=== PATIENT | female | born 1990 | race Hispanic/Latino ===

== ENCOUNTER 2024-01-23 19:49 | Emergency (ER) | payer SELFPAY ==
[2024-01-23 19:54] VITALS: BP 109/65; PULSE 71; RESP 16; TEMP 36.6; O2SAT 99
--- NOTE | 2024-01-23 20:10 | ED.GENADULT ---
HPI - General Adult General Chief complaint: Headache Stated complaint: headache Time Seen by Provider: 01/23/24 20:02 History of Present Illness HPI narrative: Mauritian speaking. Dumb Waiter Operator service used for all communication. This is a 33-year-old female presenting with a frontal headache. His last for 3 days. It is a pressure in her forehead. He is worse when she leans forward. She denies fevers chills cough or congestion. She has a history of headaches and says this is similar but worse in intensity. It was not maximal in onset. No associated neurologic loss of consciousness. Exam Narrative: APPEARANCE: No apparent distress. Head: atraumatic. tender to palpation over the frontal sinuses, no erythema of the posterior oropharynx EYES: EOMI, NOSE: Atraumatic NECK: Trachea midline RESPIRATORY: No increased rate of breathing CARDIOVASCULAR: RRR, ABDOMINAL: Non-distended MUSCULOSKELETAl: No obvious deformities NEURO: Alert. Cranial nerves 2-12 grossly intact. Sensation light touch, motor function cerebellar function intact for 4 extremities. Gait exam was normal. SKIN:: Warm, dry. Normal color PSYCHIATRIC: Normal affect Course Vital Signs Vital signs: Vital Signs Temperature 97.8 F 01/23/24 19:54 Pulse Rate 71 01/23/24 19:54 Respiratory Rate 16 01/23/24 19:54 Blood Pressure 109/65 01/23/24 19:54 Pulse Oximetry 99 01/23/24 19:54 Oxygen Delivery Room Air 01/23/24 19:54 Temperature 97.8 F 01/23/24 19:54 Pulse Rate 71 01/23/24 19:54 Respiratory Rate 16 01/23/24 19:54 Blood Pressure 109/65 01/23/24 19:54 Pulse Oximetry 99 01/23/24 19:54 Oxygen Delivery Room Air 01/23/24 19:54 Medical Decision Making MDM Narrative Medical decision making narrative: -Course: 33-year-old female presenting with a frontal headache. History and physical most consistent with sinus headache. No red flags. Patient headache will be treated to be discharged home prescriptions and primary care follow-up. -DDX includes but is not limited to: sinus headache, migraine, tension ICH -Interventions: Compazine, Benadryl, Motrin, Tylenol -Shared decision making / Disposition: discharge -RX Flonase, Motrin, Tylenol Vital Signs Vital Signs: Vital Signs Temperature 97.8 F 01/23/24 19:54 Pulse Rate 71 01/23/24 19:54 Respiratory Rate 16 01/23/24 19:54 Blood Pressure 109/65 01/23/24 19:54 Pulse Oximetry 99 01/23/24 19:54 Oxygen Delivery Room Air 01/23/24 19:54 Temperature 97.8 F 01/23/24 19:54 Pulse Rate 71 01/23/24 19:54 Respiratory Rate 16 01/23/24 19:54 Blood Pressure 109/65 01/23/24 19:54 Pulse Oximetry 99 01/23/24 19:54 Oxygen Delivery Room Air 01/23/24 19:54 Discharge Plan Discharge Clinical Impression: Headache Patient Disposition: Home, Self-Care Condition: Stable Instructions: Antibiotic Form, Acute Headache (ED) Additional Instructions: please take the prescribed medications for her headache. Please follow-up with primary care physician for further management. Return if her headache becomes severe, you become weak in 1 of your extremities, developed slurred speech or loss of consciousness. por favor tome los medicamentos recetados para sarabia dolor de marcia. Randa un seguimiento con sarabia m?dico de atenci?n primaria para un tratamiento adicional. Regrese si sarabia dolor de marcia se vuelve intenso, usted se debilita en bridger de addison extremidades, desarrolla dificultad para hablar o pierde el conocimiento. Patient Language: Mauritian Prescriptions: New fluticasone propionate [Flonase Allergy Relief] 50 mcg/actuation spray,suspension 1 spray intranasal BID Qty: 16 0RF Rx Instructions: administer into each nostril ibuprofen 800 mg tablet 800 mg PO TID PRN (Reason: pain) 7 Days Qty: 21 0RF acetaminophen 500 mg tablet 1,000 mg PO TID PRN (Reason: mulugeta) 7 Days Qty: 42 0RF Follow-up/Referrals: PHYSICIAN NOT
[2024-01-23] MEDS: diphenhydrAMINE HCl CAP 25 MG CAPSULE PO (20:32)
[2024-01-23] MEDS: ACETAMINOPHEN 500 MG TABLET 1000 MG PO (20:32)
[2024-01-23] MEDS: IBUPROFEN 400 MG TABLET 800 MG PO (20:32)
[2024-01-23] MEDS: PROCHLORPERAZINE EDISYLATE 10 MG/2 ML VIAL IM (20:33)
[2024-01-23 21:22] VITALS: BP 102/67; PULSE 67; RESP 18; O2SAT 100
--- NOTE | 2024-01-23 21:22 | PC.NURSE ---
Patient requested that we test her urine with a bedside test during discharge. Bedside test was positive. Notified EDP Dr. Peña. No new orders.
== END 2024-01-23 21:23 | disposition home or self-care (01) ==
PROVIDERS: Emergency Provider Emergency Medicine; Referring Provider Emergency Medicine
DX: R51.9 Headache, unspecified (principal)
CPT/HCPCS: 81025; 96372; 99283; A9270; J0780